=== PATIENT | male | born 1970 | race Caucasian/White ===

== ENCOUNTER 2024-02-23 12:22 | Observation (INO) ==
[2024-02-23 12:43] VITALS: BMI 28.7
[2024-02-23] MEDS: NS 1,000 ML IV 1,000 ML IV ONE ×2 (12:45→13:46)
--- NOTE | 2024-02-23 12:46 | DR.DIZZY ---
HPI Time seen Time Seen by Provider: 02/23/24 12:43 PCP Primary Care Physician: [place] Complaint Chief Complaint Doctor Comments: 53 y/o with an by coworker for evaluation. States has been ill over the past 4 days, having frequent nausea, vomiting and diarrhea. Denies any abdominal pain. Patient developed dizziness lightheadedness with standing today. Has generalized weakness. Passed out in the car while being driven here, had some brief seizure-like activity. Patient diagnosed with hypertension, on BP med over the past month. Patient took his blood pressure medicine this a.m.. On presentation has a low blood pressure. Patient denies fever, chills, URI symptoms. Does drink alcohol on a daily basis, drank last p.m.. Chief Complaint:: Pt states that since Tuesday he has had constant nausea, vomiting and diarrhea. Pt has also had progressively worsening generalized weakness. Pt's coworker reports seizure like activity in the car on the way here that lasted approximately 1-2 minutes. Pt does admit that he has had one seizure in the past but never been on any seizure medications. Nurses Notes Reviewed Nurses Notes Review: Yes Source History Provided: Patient Mode of Arrival Mode of Arrival: Wheelchair Timing Onset of Chief Complaint: 02/23/24 Context Stroke Symptoms: None PMH PMH Past Medical History: Yes Past Medical History: Hypertension and Seizures Past Surgical History: Yes Surgical History: Ortho Surgery Past Surgical History Comment: left index finger Family History History of Family Medical Conditions: No Social History Does patient currently use any type of tobacco product: Yes Have you used tobacco products in the last 12 months: Yes Type of Tobacco Use: Cigars Does any household member use tobacco: No Alcohol Use: Heavy and DAILY Do you use any recreational Drugs:: No Lives With: Alone Lives Where: Home Infectious screening In the last 2 months have you had wt loss of >10#?: NO Have you had fever, night sweats or hemotysis?: No Have you traveled outside the country in the last 6 months?: No Isolation: Standard ROS Review of Systems Constitutional: Weakness Eyes: No Symptoms Reported ENTM: No Symptoms Reported Respiratoy: No Symptoms Reported Cardiovascular: No Symptoms Reported Gastrointestinal/Abdominal: Diarrhea, Nausea and Vomiting Genitourinary: No Symptoms Reported Neurological: No Symptoms Reported Musculoskeletal: No Symptoms Reported Integumentary: No Symptoms Reported Hematologic/Lymphatic: No Symptoms Reported All Other Systems: Reviewed and Negative PE Vital Signs Vitals: Vital Signs Temperature 98.0 F Pulse Rate 69 Pulse Rate 71 Pulse Rate 72 Pulse Rate 67 Pulse Rate 68 Pulse Rate 72 Pulse Rate 80 Pulse Rate 74 Pulse Rate 69 Pulse Rate 69 Pulse Rate 67 Pulse Rate 70 Pulse Rate 70 Pulse Rate 67 Respiratory Rate 20 Blood Pressure 111/56 Blood Pressure 113/70 Blood Pressure 113/66 Blood Pressure 107/64 Blood Pressure 108/64 Blood Pressure 104/65 Blood Pressure 114/64 Blood Pressure 100/57 Blood Pressure 99/54 Blood Pressure 106/64 Blood Pressure 103/56 Blood Pressure 87/51 Blood Pressure 89/50 Blood Pressure 87/51 O2 Sat by Pulse Oximetry 97 O2 Sat by Pulse Oximetry 95 O2 Sat by Pulse Oximetry 97 O2 Sat by Pulse Oximetry 97 O2 Sat by Pulse Oximetry 97 O2 Sat by Pulse Oximetry 97 O2 Sat by Pulse Oximetry 98 O2 Sat by Pulse Oximetry 98 O2 Sat by Pulse Oximetry 98 O2 Sat by Pulse Oximetry 98 O2 Sat by Pulse Oximetry 98 O2 Sat by Pulse Oximetry 96 O2 Sat by Pulse Oximetry 95 O2 Sat by Pulse Oximetry 97 O2 Sat by Pulse Oximetry 95 General General Appearance: Alert and In No Apparent Distress Head Head Exam: Normal Inspection, Atraumatic and Normocephalic Eyes Eye exam: PERRL and EOMI ENT ENT Exam: Normal Oropharynx and Mucous Membranes Moist Neck Neck Exam: Normal Inspection; negative Tenderness Respiratory Respiratory Exam: Normal Lung Sounds Bilat; negative Accessory Muscle Use or Respiratory Distress Cardiovascular Cardiovascular Exam: Regular Rate, Normal Rhythm and Normal Heart Sounds Abdominal Exam Abdominal Exam: Normal Bowel Sounds and Soft; negative Tenderness or Guarding Extremeties Extremities Exam: Normal Inspection; negative Edema Neurologic Neurological Exam: Alert, Oriented X3 and CN II-XII Intact; negative Motor Sensory Deficit Skin Skin Exam: Warm and Dry COURSE Treatment Treatment: 53-year-old male, having nausea/vomiting/diarrhea over the past 4 days. Became lightheaded today, had a syncopal episode in the car on the way over.. Hypotensive on arrival. Denies abdominal pain.. Workup initiated. Patient given IV fluids, IV Zofran/Protonix. 1429 -labs show normal white count, 7.7. Does have slightly low platelets at 58,000. Chemistries remarkable for low sodium at 127. Has elevated BUN at 43, elevated creatinine at 3.14. eGFR is down to 22. Lactic acid elevated to 2.8. AST and ALT elevated a bit. Patient is finding consistent with dehydration, causing acute kidney injury and hyponatremia. No signs of infection causing elevated lactic acid. Patient is not septic. BP up to 107/64. Recommended admission for further hydration and treatment of his DEBORAH/hyponatremia. ROR Labs Reviewed Laboratory Results Reviewed?: Yes 02/23/24 12:35 02/23/24 12:35 Laboratory: WBC 7.7 X10^3/uL (3.6-10.0) 02/23/24 12:35 RBC 4.02 X10^6/uL (4.7-6.0) L 02/23/24 12:35 Hgb 14.1 g/dL (13.5-18.0) 02/23/24 12:35 Hct 40.6 % (42.0-54.0) L 02/23/24 12:35 MCV 101.1 fL (80.0-100.0) H 02/23/24 12:35 MCH 35.1 pg (27.0-34.0) H 02/23/24 12:35 MCHC 34.7 g/dL (33.0-35.0) 02/23/24 12:35 RDW 13.9 % (11.6-16.5) 02/23/24 12:35 Plt Count 58 X10^3/uL (150.0-450.0) L 02/23/24 12:35 MPV 11.1 fL (7.4-11.0) H 02/23/24 12:35 Neut % (Auto) 76.3 % (42.0-75.0) H 02/23/24 12:35 Lymph % (Auto) 15.7 % (21.0-51.0) L 02/23/24 12:35 [place] % (Auto) 7.2 % (0.0-13.0) 02/23/24 12:35 Eos % (Auto) 0.5 % (0.9-2.9) L 02/23/24 12:35 Baso % (Auto) 0.3 % (0.2-1.0) 02/23/24 12:35 Neut # (Auto) 5.9 x10^3/uL (2.2-4.8) H 02/23/24 12:35 Lymph # (Auto) 1.2 X10^3/uL (1.3-2.9) L 02/23/24 12:35 [place] # (Auto) 0.6 x10^3/uL (0.3-0.8) 02/23/24 12:35 Eos # (Auto) 0.0 x10^3/uL (0.0-0.2) 02/23/24 12:35 Baso # (Auto) 0.0 X10^3/uL (0.0-0.1) 02/23/24 12:35 Absolute Nucleated RBC 0.1 /100WBC 02/23/24 12:35 Sodium 127 mmol/L (136-145) L 02/23/24 12:35 Corrected Sodium 128 mmol/L (136-145) L 02/23/24 12:35 Potassium 4.1 mmol/L (3.5-5.1) 02/23/24 12:35 Chloride 87 mmol/L (98-107) L 02/23/24 12:35 Carbon Dioxide 29.3 mmol/L (21-32) 02/23/24 12:35 BUN 43 mg/dL (7-18) H 02/23/24 12:35 Creatinine 3.14 mg/dL (0.70-1.30) H 02/23/24 12:35 Est GFR (MDRD) Af Amer 27 (>60) L 02/23/24 12:35 Est GFR (MDRD) Non-Af 22 (>60) L 02/23/24 12:35 Glucose 144 mg/dL (65-99) H 02/23/24 12:35 Lactic Acid 2.8 mmol/L (0.4-2.0) H 02/23/24 12:35 Calcium 9.0 mg/dL (8.5-10.1) 02/23/24 12:35 Corrected Calcium TNP 02/23/24 12:35 Total Bilirubin 1.00 mg/dL (0.2-1.0) 02/23/24 12:35 AST 174 Units/L (15-37) H 02/23/24 12:35 ALT 154 Units/L (12-78) H 02/23/24 12:35 Alkaline Phosphatase 50 Units/L (46-116) 02/23/24 12:35 Ammonia < 10 umol/L (11-32) L 02/23/24 12:35 Creatine Kinase 461 Units/L (39-308) H 02/23/24 12:35 Troponin I High Sens 17.1 ng/L (4.0-60.0) 02/23/24 12:35 Total Protein 7.1 g/dL (6.4-8.2) 02/23/24 12:35 Albumin 3.7 g/dL (3.4-5.0) 02/23/24 12:35 Globulin 3.4 g/dL (2.5-4.5) 02/23/24 12:35 Albumin/Globulin Ratio 1.1 Ratio (1.1-2.1) 02/23/24 12:35 Lipase 191 Units/L (16-77) H 02/23/24 12:35 BUN 43, creatinine 3.14, sodium 127 EKG Rate: 70 [place]: Normal Rhythm: NSR Block: RBBB ST: Nonsp Opioid Opioid Risk Tool Total: 0 Total Score Risk Category: Low Risk Copyright: Jaya BAUM predicting aberrant behaviors Discharge Plan Diagnosis Discharge Problem: Acute kidney injury (nontraumatic), Volume depletion, Acute hyponatremia Discharge Plan Patient Disposition: ADMITTED INPATIENT Condition: Stable Prescriptions: No Action buspirone 10 mg tablet 10 mg PO BID buspirone 10 mg tablet 10 mg PO BID nebivolol 5 mg tablet 5 mg PO QDAY omeprazole 20 mg Capsule,Delayed Release(Dr/Ec) 20 mg PO DAILY Health Concerns: Post Hospitalization: new medications and changes needed to prevent readmission or further decline. Pt educated and given instructions on all concerns. Plan of Treatment: Continue with present treatment and follow up plan. Pt is to keep follow up appointment as instructed and take medications as ordered. Orders to Discharge Patient Discharge Orders: Transfer (Routine); Ordered 02/23/24 Ordered By: Alonzo Hudson Follow ups/Referrals Follow ups/Referrals: [facility] [Primary Care Provider] - 3 days
--- NOTE | 2024-02-23 12:50 | EKG ---
Test Reason : weakness, dizziness Blood Pressure : */* mmHG Vent. Rate : 70 BPM Atrial Rate : 70 BPM P-R Int : 146 ms QRS Dur : 180 ms QT Int : 460 ms P-R-T Axes : 40 94 46 degrees QTc Int : 496 ms Normal sinus rhythm Right bundle branch block Abnormal ECG No previous ECGs available Confirmed by Mustapha Solares ([id number]) on 02/27/2024 8:58:35 AM Referred By: Confirmed By: Mustapha Solares
[2024-02-23] MEDS: PROTONIX INJ 40 MG VIAL IVP ONE (12:56)
[2024-02-23] MEDS: ZOFRAN INJ 4 MG VIAL IVP ONE (12:56)
[2024-02-23 13:08] LABS: HEMOGLOBIN 14.1 g/dL (13.5-18.0); NEUTROPHILS # (AUTO) 5.9 x10^3/uL (2.2-4.8); PLATELET COUNT 58 X10^3/uL (150.0-450.0); WHITE BLOOD COUNT 7.7 X10^3/uL (3.6-10.0)
[2024-02-23 13:13] LABS: BASOPHILS % (AUTO) 0.3 % (0.2-1.0); EOSINOPHILS % (AUTO) 0.5 % (0.9-2.9); HEMATOCRIT 40.6 % (42.0-54.0); LYMPHOCYTES # (AUTO) 1.2 X10^3/uL (1.3-2.9); LYMPHOCYTES % (AUTO) 15.7 % (21.0-51.0); MEAN CORPUSCULAR HEMOGLOBIN 35.1 pg (27.0-34.0); MEAN CORPUSCULAR HGB CONC 34.7 g/dL (33.0-35.0); MEAN CORPUSCULAR VOLUME 101.1 fL (80.0-100.0); MEAN PLATELET VOLUME 11.1 fL (7.4-11.0); MONOCYTES # (AUTO) 0.6 x10^3/uL (0.3-0.8); MONOCYTES % (AUTO) 7.2 % (0.0-13.0); NEUTROPHILS % (AUTO) 76.3 % (42.0-75.0); RED BLOOD COUNT 4.02 X10^6/uL (4.7-6.0); RED CELL DISTRIBUTION WIDTH 13.9 % (11.6-16.5)
[2024-02-23 13:20] LABS: ALANINE AMINOTRANSFERASE 154 Units/L (12-78); ALBUMIN 3.7 g/dL (3.4-5.0); ALKALINE PHOSPHATASE 50 Units/L (46-116); ASPARTATE AMINO TRANSFERASE 174 Units/L (15-37); BLOOD UREA NITROGEN 43 mg/dL (7-18); CARBON DIOXIDE 29.3 mmol/L (21-32); CHLORIDE 87 mmol/L (98-107); COR NA(FOR HYPERGLY) 128 mmol/L (136-145); CREATINE KINASE 461 Units/L (39-308); CREATININE 3.14 mg/dL (0.70-1.30); GLUCOSE 144 mg/dL (65-99); LIPASE 191 Units/L (16-77); POTASSIUM 4.1 mmol/L (3.5-5.1); SODIUM 127 mmol/L (136-145); TOTAL PROTEIN 7.1 g/dL (6.4-8.2); eGFR NON BLACK RACES 22 (>60)
[2024-02-23 13:32] LABS: AMMONIA < 10 umol/L (11-32)
[2024-02-23] MEDS: NS 1,000 ML IV 1,000 ML IV SCH (15:03)
[2024-02-23] MEDS: NS 1,000 ML IV 1,000 ML ONE (16:26)
[2024-02-23] MEDS: PROTONIX INJ 40 MG VIAL ONE (16:26)
[2024-02-23] MEDS: ZOFRAN INJ 4 MG VIAL ONE (16:27)
[2024-02-23] MEDS ORDERED: MAALOX or MYLANTA PO PRN (16:30)
[2024-02-23] MEDS: LIBRIUM PO PRN (19:31)
[2024-02-23] MEDS: AMBIEN PO SCH (21:12)
[2024-02-23] MEDS: MAGNESIUM SULFATE 1 GRAM/100 mL PREMIX 1 G/100 ML BAG IV SCH (21:12)
[2024-02-23] MEDS: BUSPAR PO SCH (21:27)
[2024-02-24 05:01] LABS: MEAN CORPUSCULAR HEMOGLOBIN 34.8 pg (27.0-34.0); PLATELET COUNT 52 X10^3/uL (150.0-450.0)
[2024-02-24 05:03] LABS: BASOPHILS % (AUTO) 0.5 % (0.2-1.0); EOSINOPHILS # (AUTO) 0.1 x10^3/uL (0.0-0.2); EOSINOPHILS % (AUTO) 1.4 % (0.9-2.9); HEMATOCRIT 37.7 % (42.0-54.0); HEMOGLOBIN 12.9 g/dL (13.5-18.0); LYMPHOCYTES # (AUTO) 1.3 X10^3/uL (1.3-2.9); LYMPHOCYTES % (AUTO) 19.3 % (21.0-51.0); MEAN CORPUSCULAR HGB CONC 34.3 g/dL (33.0-35.0); MEAN CORPUSCULAR VOLUME 101.3 fL (80.0-100.0); MEAN PLATELET VOLUME 11.1 fL (7.4-11.0); MONOCYTES # (AUTO) 0.4 x10^3/uL (0.3-0.8); MONOCYTES % (AUTO) 6.6 % (0.0-13.0); NEUTROPHILS # (AUTO) 4.8 x10^3/uL (2.2-4.8); NEUTROPHILS % (AUTO) 72.2 % (42.0-75.0); RED BLOOD COUNT 3.72 X10^6/uL (4.7-6.0); RED CELL DISTRIBUTION WIDTH 13.8 % (11.6-16.5); WHITE BLOOD COUNT 6.6 X10^3/uL (3.6-10.0)
[2024-02-24 05:13] LABS: ALANINE AMINOTRANSFERASE 144 Units/L (12-78); ALBUMIN 3.1 g/dL (3.4-5.0); ALKALINE PHOSPHATASE 42 Units/L (46-116); ASPARTATE AMINO TRANSFERASE 166 Units/L (15-37); BLOOD UREA NITROGEN 33 mg/dL (7-18); CALCIUM 8.1 mg/dL (8.5-10.1); CARBON DIOXIDE 29.7 mmol/L (21-32); CHLORIDE 97 mmol/L (98-107); COR CA(FOR HYPOALB) 8.8 mg/dL (8.5-10.1); CREATININE 1.65 mg/dL (0.70-1.30); GLUCOSE 92 mg/dL (65-99); POTASSIUM 4.1 mmol/L (3.5-5.1); SODIUM 137 mmol/L (136-145); TOTAL PROTEIN 6.1 g/dL (6.4-8.2); eGFR NON BLACK RACES 47 (>60)
[2024-02-24] MEDS: THIAMINE HCL INJ IM SCH (09:35)
[2024-02-24] MEDS: PriLOSEC PO SCH (09:36)
--- NOTE | 2024-02-24 09:36 | DR.H&P ---
H&P History & Physical for Day of: H&P Date: 02/24/24 Chief Complaint Chief Complaint: Nausea/vomiting Weakness History of Present Illness History of Present Illness: Patient is a 53-year-old male with a past medical history of hypertension, alcohol use, insomnia, presenting with nausea, vomiting, generalized weakness for the past 4 days. He reports that symptoms were worsening and he was becoming significantly weak at home and unable to get out of bed. Denies fevers, chills, abdominal pain. Denies diarrhea, constipatio n. Labs/imaging: WBC 6.6, hemoglobin 12.9, platelets 52, sodium 127>137, potassium 4.1, creatinine 3.14>1.65, glucose 92, AST 166, ALT 144, alkaline phosphatase 42, CK 461, troponin negative, lipase 191, blood cultures pending. Patient was admitted for acute renal failure, dehydration, acute hyponatremia, thrombocytopenia, Elevated CK, transaminitis. This morning patient does feel better. Will advance his diet to full liquid today. Continue with IV fluids normal saline at 150 mL/h, home medications have been resumed. Will continue with Librium and thiamine due to alcohol history. Repeat CK this morning. Order u/s of abdomen. Hepatitis panel. Otherwise continue with current treatment plan. Continue closely monitor and follow-up labs in the morning. Time spent for clinical assessment, reviewing labs/imaging, physical exam, decision making and documentation greater than 45 mins. Past Medical History Past Medical History: Hypertension and Seizures Past Surgical History Surgical History: Ortho Surgery Social History Does patient currently use any type of tobacco product: Yes Have you used tobacco products in the last 12 months: Yes Type of Tobacco Use: Cigars Does any household member use tobacco: Yes Alcohol Use: DAILY Drug Use: None Medications Home Medications: Home Medications Medication Instructions Recorded Confirmed Type buspirone 10 mg tablet 10 mg PO BID anxiety 02/23/24 02/23/24 History buspirone 10 mg tablet 10 mg PO BID anxiety 02/23/24 02/23/24 History nebivolol 5 mg tablet 5 mg PO QDAY blood pressure 02/23/24 02/23/24 History omeprazole 20 mg capsule,delayed 20 mg PO DAILY 02/23/24 02/23/24 History release Allergies Allergies Allergy/AdvReac Type Severity Reaction Status Date / Time No Known Allergies Allergy Verified 02/23/24 12:45 Labs 02/24/24 04:43 02/24/24 04:43 Labs: Laboratory WBC 6.6 X10^3/uL (3.6-10.0) 02/24/24 04:43 RBC 3.72 X10^6/uL (4.7-6.0) L 02/24/24 04:43 Hgb 12.9 g/dL (13.5-18.0) L 02/24/24 04:43 Hct 37.7 % (42.0-54.0) L 02/24/24 04:43 MCV 101.3 fL (80.0-100.0) H 02/24/24 04:43 MCH 34.8 pg (27.0-34.0) H 02/24/24 04:43 MCHC 34.3 g/dL (33.0-35.0) 02/24/24 04:43 RDW 13.8 % (11.6-16.5) 02/24/24 04:43 Plt Count 52 X10^3/uL (150.0-450.0) L 02/24/24 04:43 MPV 11.1 fL (7.4-11.0) H 02/24/24 04:43 Neut % (Auto) 72.2 % (42.0-75.0) 02/24/24 04:43 Lymph % (Auto) 19.3 % (21.0-51.0) L 02/24/24 04:43 [place] % (Auto) 6.6 % (0.0-13.0) 02/24/24 04:43 Eos % (Auto) 1.4 % (0.9-2.9) 02/24/24 04:43 Baso % (Auto) 0.5 % (0.2-1.0) 02/24/24 04:43 Neut # (Auto) 4.8 x10^3/uL (2.2-4.8) 02/24/24 04:43 Lymph # (Auto) 1.3 X10^3/uL (1.3-2.9) 02/24/24 04:43 [place] # (Auto) 0.4 x10^3/uL (0.3-0.8) 02/24/24 04:43 Eos # (Auto) 0.1 x10^3/uL (0.0-0.2) 02/24/24 04:43 Baso # (Auto) 0.0 X10^3/uL (0.0-0.1) 02/24/24 04:43 Absolute Nucleated RBC 0.1 /100WBC 02/24/24 04:43 Sodium 137 mmol/L (136-145) 02/24/24 04:43 Corrected Sodium TNP 02/24/24 04:43 Potassium 4.1 mmol/L (3.5-5.1) 02/24/24 04:43 Chloride 97 mmol/L (98-107) L 02/24/24 04:43 Carbon Dioxide 29.7 mmol/L (21-32) 02/24/24 04:43 BUN 33 mg/dL (7-18) H 02/24/24 04:43 Creatinine 1.65 mg/dL (0.70-1.30) H 02/24/24 04:43 Est GFR (MDRD) Af Amer 57 (>60) L 02/24/24 04:43 Est GFR (MDRD) Non-Af 47 (>60) L 02/24/24 04:43 Glucose 92 mg/dL (65-99) 02/24/24 04:43 Lactic Acid 0.8 mmol/L (0.4-2.0) 02/23/24 15:50 Calcium 8.1 mg/dL (8.5-10.1) L 02/24/24 04:43 Corrected Calcium 8.8 mg/dL (8.5-10.1) 02/24/24 04:43 Magnesium 1.5 mg/dL (2.0-2.9) L 02/23/24 12:35 Total Bilirubin 1.30 mg/dL (0.2-1.0) H 02/24/24 04:43 AST 166 Units/L (15-37) H 02/24/24 04:43 ALT 144 Units/L (12-78) H 02/24/24 04:43 Alkaline Phosphatase 42 Units/L (46-116) L 02/24/24 04:43 Ammonia < 10 umol/L (11-32) L 02/23/24 12:35 Creatine Kinase 461 Units/L (39-308) H 02/23/24 12:35 Troponin I High Sens 17.1 ng/L (4.0-60.0) 02/23/24 12:35 Total Protein 6.1 g/dL (6.4-8.2) L 02/24/24 04:43 Albumin 3.1 g/dL (3.4-5.0) L 02/24/24 04:43 Globulin 3.0 g/dL (2.5-4.5) 02/24/24 04:43 Albumin/Globulin Ratio 1.0 Ratio (1.1-2.1) L 02/24/24 04:43 Lipase 191 Units/L (16-77) H 02/23/24 12:35 Review of Systems Constitutional: Weakness; denies Fever or Chills Eyes: No Symptoms Reported ENT: No Symptoms Reported Respiratory: No Symptoms Reported Cardiovascular: No Symptoms Reported Gastrointestinal: Nausea and Vomiting Genitourinary: No Symptoms Reported Musculoskeletal: No Symptoms Reported Skin: No Symptoms Reported Neurological: No Symptoms Reported Physical Exam Vital Signs: Vital Signs Temperature 98.6 F Pulse Rate [Left] 64 Respiratory Rate 18 Blood Pressure [Left Arm] 117/67 O2 Sat by Pulse Oximetry 95 Oriented: Normal Eyes: Normal Ear: Normal Nose: Normal Throat: Normal Respiratory: Clear Throughout Cardiovascular: Normal : Normal Auscultation: Bowel Sounds: Normal Palpation: Normal Tenderness: Normal Skin: Normal Musculoskeletal: Normal Psychiatric: Normal Mood Description: Calm and Appropriate Affect: Normal Speech Pattern: Clear and Appropriate Assessment/Plan (1) Acute renal failure: Status: Acute Plan: Hold nephrotoxic agents IVF, trend renal function (2) Dehydration: Status: Acute (3) Acute hyponatremia: Status: Acute (4) Elevated CK: Status: Acute (5) Thrombocytopenia: Status: Acute (6) Alcohol use disorder: Status: Acute (7) Transaminitis: Status: Acute Plan: Hepatitis panel U/S abdomen Review H&P Reviewed: Yes Patient was examined?: Yes
--- NOTE | 2024-02-24 16:02 | US ---
EXAM:ABDOMENHISTORY:ELEVATED LIVER ENZYMES, THROMBOCYTOPENIA;COMPARISON:None available.TECHNIQUE:Multiple pedroza scale and color flow Doppler images of the abdomen were obtained.FINDINGS:Liver: Diffusely echogenic/fatty liver without dominant liver mass lesions seen.Gallbladder: No gallstones or evidence for acute cholecystitis.Common bile duct: Within normal limits, measuring 3 mm.Spleen: Normal in size and appearance, measuring 8 x 5 cm.Pancreas: What is visualized is unremarkable but the pancreatic body and tail are largely obscured by overlying bowel gas.Right kidney: Unremarkable in appearance and normal in size, measuring 12 x 6 cm. No stones, masses, or hydronephrosis.Left kidney: Unremarkable in appearance and normal in size, measuring 11 x 5 cm. No stones, masses, or hydronephrosis.IVC: Unremarkable without concerning abnormalities.Abdominal aorta: Nonaneurysmal.Other: No significant ascites or focal fluid collection seen.IMPRESSION:Diffusely echogenic/fatty liver. Otherwise, negative complete abdominal ultrasound examination.THIS IS AN ELECTRONICALLY VERIFIED FINAL REPORT02/24/2024 3:59 PM - Electronically signed by Nahid Braga MD
[2024-02-24] MEDS: CONSULT PHARMACY - POTASSIUM & MAGNESIUM XX SCH (19:51)
[2024-02-25 03:52] VITALS: O2SAT 95
[2024-02-25 06:05] LABS: BASOPHILS % (AUTO) 0.6 % (0.2-1.0); EOSINOPHILS # (AUTO) 0.2 x10^3/uL (0.0-0.2); EOSINOPHILS % (AUTO) 3.5 % (0.9-2.9); HEMOGLOBIN 12.6 g/dL (13.5-18.0); LYMPHOCYTES # (AUTO) 1.3 X10^3/uL (1.3-2.9); LYMPHOCYTES % (AUTO) 22.4 % (21.0-51.0); MEAN CORPUSCULAR HEMOGLOBIN 33.9 pg (27.0-34.0); MEAN CORPUSCULAR HGB CONC 33.2 g/dL (33.0-35.0); MEAN PLATELET VOLUME 10.9 fL (7.4-11.0); MONOCYTES # (AUTO) 0.4 x10^3/uL (0.3-0.8); MONOCYTES % (AUTO) 7.6 % (0.0-13.0); NEUTROPHILS # (AUTO) 3.8 x10^3/uL (2.2-4.8); NEUTROPHILS % (AUTO) 65.9 % (42.0-75.0); PLATELET COUNT 64 X10^3/uL (150.0-450.0); RED BLOOD COUNT 3.72 X10^6/uL (4.7-6.0); RED CELL DISTRIBUTION WIDTH 13.6 % (11.6-16.5); WHITE BLOOD COUNT 5.7 X10^3/uL (3.6-10.0)
[2024-02-25 06:17] LABS: ALANINE AMINOTRANSFERASE 245 Units/L (12-78); ALBUMIN 2.9 g/dL (3.4-5.0); ALKALINE PHOSPHATASE 42 Units/L (46-116); ASPARTATE AMINO TRANSFERASE 293 Units/L (15-37); BLOOD UREA NITROGEN 20 mg/dL (7-18); CALCIUM 8.1 mg/dL (8.5-10.1); CHLORIDE 99 mmol/L (98-107); CREATININE 1.07 mg/dL (0.70-1.30); GLUCOSE 96 mg/dL (65-99); MAGNESIUM 1.8 mg/dL (2.0-2.9); POTASSIUM 3.9 mmol/L (3.5-5.1); SODIUM 137 mmol/L (136-145); TOTAL PROTEIN 5.9 g/dL (6.4-8.2); eGFR NON BLACK RACES > 60 (>60)
[2024-02-25] MEDS ORDERED: CONSULT PHARMACY - POTASSIUM & MAGNESIUM XX SCH (07:00)
[2024-02-25] MEDS: K-DUR TAB 20 MEQ PO SCH (08:32)
[2024-02-25] MEDS ORDERED: MAG-OX TAB PO SCH (09:00)
[2024-02-25 09:51] VITALS: BP 135/99; PULSE 88; RESP 19; TEMP 97.8
--- NOTE | 2024-02-28 18:50 | W.DIS.FURT ---
Summary of Discharge Discharge Summary of Date Date of Exam: 02/25/24 Admission Date Date of Admission: 02/23/24 Admission Diagnosis Patient Problems (Updated 02/24/24 @ 09:35 by Stefan Miner) Acute kidney injury (nontraumatic) (Acute) N17.9 Volume depletion (Acute) E86.9 Acute hyponatremia (Acute) E87.1 Hospital Course: Patient is a 53-year-old male with a past medical history of hypertension, al cohol use, insomnia, admitted for acute renal failure, dehydration, acute hyponatremia, thrombocytopenia, Elevated CK, transaminitis. His hospital/treatment course included IVF NS@150ml/h, Librium, and thiamine. His diet was gradually advanced. Pt responded well to treatments. Renal function back wnl and symptoms resolved. U/S liver revealed fatty liver. Hepatitis panel can be followed up outpatient. Pt would like to stop drinking alcohol. Rx librium, instructed to not use if he were to start drinking. Pt discharged in stable condition. Instructed to follow up with pcp in 1 week. Vital Signs: Vital Signs (72 hours) 02/23/24 12:36 02/23/24 12:28 02/23/24 12:28 Temperature 98.0 F Pulse Rate 70 67 Pulse Rate [Left] Respiratory Rate 20 Blood Pressure 87/51 87/51 Blood Pressure [Left Arm] O2 Sat by Pulse Oximetry 95 95 Oxygen Delivery Method Room Air 02/23/24 12:30 02/23/24 12:30 02/23/24 12:45 Temperature Pulse Rate 70 Pulse Rate [Left] Respiratory Rate Blood Pressure 89/50 103/56 Blood Pressure [Left Arm] O2 Sat by Pulse Oximetry 97 Oxygen Delivery Method 02/23/24 12:45 02/23/24 13:00 02/23/24 13:00 Temperature Pulse Rate 67 69 Pulse Rate [Left] Respiratory Rate Blood Pressure 106/64 Blood Pressure [Left Arm] O2 Sat by Pulse Oximetry 96 98 Oxygen Delivery Method 02/23/24 13:15 02/23/24 13:15 02/23/24 13:30 Temperature Pulse Rate 69 Pulse Rate [Left] Respiratory Rate Blood Pressure 99/54 100/57 Blood Pressure [Left Arm] O2 Sat by Pulse Oximetry 98 Oxygen Delivery Method 02/23/24 13:30 02/23/24 13:45 02/23/24 13:45 Temperature Pulse Rate 74 80 Pulse Rate [Left] Respiratory Rate Blood Pressure 114/64 Blood Pressure [Left Arm] O2 Sat by Pulse Oximetry 98 98 Oxygen Delivery Method 02/23/24 14:00 02/23/24 14:00 02/23/24 14:15 Temperature Pulse Rate 72 Pulse Rate [Left] Respiratory Rate Blood Pressure 104/65 108/64 Blood Pressure [Left Arm] O2 Sat by Pulse Oximetry 98 Oxygen Delivery Method 02/23/24 14:15 02/23/24 14:30 02/23/24 14:30 Temperature Pulse Rate 68 67 Pulse Rate [Left] Respiratory Rate Blood Pressure 107/64 Blood Pressure [Left Arm] O2 Sat by Pulse Oximetry 97 97 Oxygen Delivery Method 02/23/24 14:45 02/23/24 14:46 02/23/24 14:46 Temperature Pulse Rate 72 Pulse Rate [Left] Respiratory Rate Blood Pressure 113/66 Blood Pressure [Left Arm] O2 Sat by Pulse Oximetry 97 97 Oxygen Delivery Method 02/23/24 15:00 02/23/24 15:00 02/23/24 15:15 Temperature Pulse Rate 71 Pulse Rate [Left] Respiratory Rate Blood Pressure 113/70 111/56 Blood Pressure [Left Arm] O2 Sat by Pulse Oximetry 95 Oxygen Delivery Method 02/23/24 15:15 02/23/24 15:30 02/23/24 15:30 Temperature Pulse Rate 69 71 Pulse Rate [Left] Respiratory Rate Blood Pressure 112/65 Blood Pressure [Left Arm] O2 Sat by Pulse Oximetry 97 96 Oxygen Delivery Method 02/23/24 16:30 02/23/24 16:38 02/23/24 16:04 Temperature 98.3 F Pulse Rate Pulse Rate [Left] 69 68 Respiratory Rate 20 18 Blood Pressure Blood Pressure [Left Arm] 123/72 111/68 O2 Sat by Pulse Oximetry 97 96 Oxygen Delivery Method Room Air Room Air Room Air 02/23/24 19:00 02/23/24 20:00 02/24/24 00:00 Temperature 99.0 F 98.4 F Pulse Rate Pulse Rate [Left] 70 61 Respiratory Rate 21 20 Blood Pressure Blood Pressure [Left Arm] 123/74 107/62 O2 Sat by Pulse Oximetry 96 95 Oxygen Delivery Method Room Air Room Air Room Air 02/24/24 04:00 02/24/24 07:00 02/24/24 08:00 Temperature 98.6 F 97.2 F L Pulse Rate Pulse Rate [Left] 64 67 Respiratory Rate 18 18 Blood Pressure Blood Pressure [Left Arm] 117/67 118/79 O2 Sat by Pulse Oximetry 95 98 Oxygen Delivery Method Room Air Room Air Room Air 02/24/24 11:34 02/24/24 16:00 02/24/24 20:00 Temperature 97.8 F 97.8 F 98.2 F Pulse Rate Pulse Rate [Left] 70 68 73 Respiratory Rate 18 18 19 Blood Pressure Blood Pressure [Left Arm] 166/83 132/87 135/75 O2 Sat by Pulse Oximetry 97 99 97 Oxygen Delivery Method Room Air Room Air Room Air 02/24/24 19:00 02/25/24 00:00 02/25/24 03:52 Temperature 98.2 F 98.1 F Pulse Rate Pulse Rate [Left] 63 70 Respiratory Rate 18 20 Blood Pressure Blood Pressure [Left Arm] 138/77 137/72 O2 Sat by Pulse Oximetry 94 L 95 Oxygen Delivery Method Room Air Room Air Room Air 02/25/24 07:00 02/25/24 08:00 Temperature 97.8 F Pulse Rate Pulse Rate [Left] 88 Respiratory Rate 19 Blood Pressure Blood Pressure [Left Arm] 135/99 O2 Sat by Pulse Oximetry 95 Oxygen Delivery Method Room Air Room Air Labs: Laboratory Last Values WBC 5.7 X10^3/uL (3.6-10.0) 02/25/24 05:50 RBC 3.72 X10^6/uL (4.7-6.0) L 02/25/24 05:50 Hgb 12.6 g/dL (13.5-18.0) L 02/25/24 05:50 Hct 38.0 % (42.0-54.0) L 02/25/24 05:50 MCV 102.0 fL (80.0-100.0) H 02/25/24 05:50 MCH 33.9 pg (27.0-34.0) 02/25/24 05:50 MCHC 33.2 g/dL (33.0-35.0) 02/25/24 05:50 RDW 13.6 % (11.6-16.5) 02/25/24 05:50 Plt Count 64 X10^3/uL (150.0-450.0) L 02/25/24 05:50 MPV 10.9 fL (7.4-11.0) 02/25/24 05:50 Neut % (Auto) 65.9 % (42.0-75.0) 02/25/24 05:50 Lymph % (Auto) 22.4 % (21.0-51.0) 02/25/24 05:50 Dane % (Auto) 7.6 % (0.0-13.0) 02/25/24 05:50 Eos % (Auto) 3.5 % (0.9-2.9) H 02/25/24 05:50 Baso % (Auto) 0.6 % (0.2-1.0) 02/25/24 05:50 Neut # (Auto) 3.8 x10^3/uL (2.2-4.8) 02/25/24 05:50 Lymph # (Auto) 1.3 X10^3/uL (1.3-2.9) 02/25/24 05:50 Dane # (Auto) 0.4 x10^3/uL (0.3-0.8) 02/25/24 05:50 Eos # (Auto) 0.2 x10^3/uL (0.0-0.2) 02/25/24 05:50 Baso # (Auto) 0.0 X10^3/uL (0.0-0.1) 02/25/24 05:50 Absolute Nucleated RBC 0.0 /100WBC 02/25/24 05:50 Sodium 137 mmol/L (136-145) 02/25/24 05:50 Corrected Sodium TNP 02/25/24 05:50 Potassium 3.9 mmol/L (3.5-5.1) 02/25/24 05:50 Chloride 99 mmol/L (98-107) 02/25/24 05:50 Carbon Dioxide 29.0 mmol/L (21-32) 02/25/24 05:50 BUN 20 mg/dL (7-18) H 02/25/24 05:50 Creatinine 1.07 mg/dL (0.70-1.30) 02/25/24 05:50 Est GFR (MDRD) Af Amer > 60 (>60) 02/25/24 05:50 Est GFR (MDRD) Non-Af > 60 (>60) 02/25/24 05:50 Glucose 96 mg/dL (65-99) 02/25/24 05:50 Lactic Acid 0.8 mmol/L (0.4-2.0) 02/23/24 15:50 Calcium 8.1 mg/dL (8.5-10.1) L 02/25/24 05:50 Corrected Calcium 9.0 mg/dL (8.5-10.1) 02/25/24 05:50 Magnesium 1.8 mg/dL (2.0-2.9) L 02/25/24 05:50 Total Bilirubin 0.90 mg/dL (0.2-1.0) 02/25/24 05:50 AST 293 Units/L (15-37) H 02/25/24 05:50 ALT 245 Units/L (12-78) H 02/25/24 05:50 Alkaline Phosphatase 42 Units/L (46-116) L 02/25/24 05:50 Ammonia < 10 umol/L (11-32) L 02/23/24 12:35 Creatine Kinase 166 Units/L (39-308) 02/25/24 05:30 Troponin I High Sens 17.1 ng/L (4.0-60.0) 02/23/24 12:35 Total Protein 5.9 g/dL (6.4-8.2) L 02/25/24 05:50 Albumin 2.9 g/dL (3.4-5.0) L 02/25/24 05:50 Globulin 3.0 g/dL (2.5-4.5) 02/25/24 05:50 Albumin/Globulin Ratio 1.0 Ratio (1.1-2.1) L 02/25/24 05:50 Lipase 191 Units/L (16-77) H 02/23/24 12:35 Reason For Visit: ACUTE KIDNEY INJURY,VOLUME DEPLETION, ACUTE Discharge Date Discharge Date: 02/25/24 Discharge Diagnosis All Active Problems (Updated 02/24/24 @ 09:35 by Stefan Miner) Transaminitis (Acute) Alcohol use disorder (Acute) Thrombocytopenia (Acute) Elevated CK (Acute) Dehydration (Acute) Acute renal failure (Acute) Acute kidney injury (nontraumatic) (Acute) Volume depletion (Acute) Acute hyponatremia (Acute) Plan of Treatment: Continue with present treatment and follow up plan. Pt is to keep follow up appointment as instructed and take medications as ordered. Discharge Medications Discharge Medications: No Known Allergies Allergy (Verified 02/23/24 12:45) CONTINUE taking the following medications buspirone 10 mg tablet 10 mg PO BID anxiety 02/23/24 [History] buspirone 10 mg tablet 10 mg PO BID anxiety 02/23/24 [History] nebivolol 5 mg tablet 5 mg PO QDAY blood pressure 02/23/24 [History] omeprazole 20 mg capsule,delayed release 20 mg PO DAILY 02/23/24 [History] New Prescriptions chlordiazepoxide HCl 25 mg capsule 25 mg PO Q6H PRN 30 days #30 caps 02/25/24 [Rx] Discharge Plan Discharge Plan Hospital Course: Patient is a 53-year-old male with a past medical history of hypertension, alcohol use, insomnia, admitted for acute renal failure, dehydration, acute hyponatremia, thrombocytopenia, Elevated CK, transaminitis. His hospital/treatment course included IVF NS@150ml/h, Librium, and thiamine. His diet was gradually advanced. Pt responded well to treatments. Renal function back wnl and symptoms resolved. U/S liver revealed fatty liver. Hepatitis panel can be followed up outpatient. Pt would like to stop drinking alcohol. Rx librium, instructed to not use if he were to start drinking. Pt discharged in stable condition. Instructed to follow up with pcp in 1 week. Patient Disposition: 01 HOME, SELF-CARE Condition: Stable Health Concerns: Post Hospitalization: new medications and changes needed to prevent readmission or further decline. Pt educated and given instructions on all concerns. Plan of Treatment: Continue with present treatment and follow up plan. Pt is to keep follow up appointment as instructed and take medications as ordered. Prescriptions: New chlordiazepoxide HCl 25 mg Capsule 25 mg PO Q6H MDD 4 PRN30 Days Qty: 30 0RF Continued buspirone 10 mg tablet 10 mg PO BID buspirone 10 mg tablet 10 mg PO BID nebivolol 5 mg tablet 5 mg PO QDAY omeprazole 20 mg Capsule,Delayed Release(Dr/Ec) 20 mg PO DAILY Orders to Discharge Patient Discharge Orders: Discharge (Routine); Ordered 02/25/24 Ordered By: Stefan Miner Follow ups/Referrals Follow ups/Referrals: [facility] [Primary Care Provider] - 3 days Instructions Instructions: Alcohol Use Disorder, Dehydration, Adult, [id number] Stand Alone Forms: Excuse From Work or School, Post Hospital Follow Up Care
== END 2024-02-25 11:42 | disposition home or self-care (01) ==
LOC: ER 12:22 → MED/SURG 15:34 → INTOOBSV 15:34 → MED/SURG 16:18
PROVIDERS: ADMIT Internal Medicine; ATTEND Internal Medicine
DX: R53.1 Weakness; R74.02 Elevation of levels of lactic acid dehydrogenase [LDH]; E86.0 Dehydration; K76.0 Fatty (change of) liver, not elsewhere classified; I10 Essential (primary) hypertension; E83.42 Hypomagnesemia; E86.9 Volume depletion, unspecified; R74.8 Abnormal levels of other serum enzymes; F10.90 Alcohol use, unspecified, uncomplicated; E87.1 Hypo-osmolality and hyponatremia; D69.6 Thrombocytopenia, unspecified; R42 Dizziness and giddiness; R94.31 Abnormal electrocardiogram [ECG] [EKG]; N17.8 Other acute kidney failure